=== PATIENT | female | born 1965 | race African-American/Black ===

== ENCOUNTER 2019-02-24 19:24 | Emergency (ER) | payer OTHER ==
[~2019-02-24] VITALS: Ht 154.9 cm; Wt 121.6 kg
[2019-02-24] MEDS ORDERED: cloNIDine HCL 0.1 MG TAB ONE (19:43)
[2019-02-24] MEDS ORDERED: cloNIDine HCL 0.1 MG TAB PO ONE (19:45)
[2019-02-24 20:56] LABS: Basophils # (auto) 0.1 uL; Eosinophils # (auto) 0.1 uL
[2019-02-24 20:58] LABS: Basophils % (auto) 0.9 % (0.0-2.0); Eosinophils % (auto) 0.9 % (0.0-7.0); Hematocrit 38.1 % (36.0-46.0); Hemoglobin 12.1 g/dL (12.2-16.2); Lymphocytes # (auto) 1.8 uL; Lymphocytes % (auto) 22.7 % (10.0-50.0); Mean Corpuscular Hemoglobin 22.6 pg (28.0-32.0); Mean Corpuscular Hgb Conc. 31.8 g/dL (32.0-36.0); Mean Corpuscular Volume 70.9 fL (80.0-100.0); Monocytes # (auto) 0.6 uL; Monocytes % (auto) 7.2 % (0.0-12.0); Neutrophils # (auto) 5.5 uL; Neutrophils % (auto) 68.3 % (37.0-80.0); Platelet Count (auto) 260 10^3/uL (140-450); Red Blood Cells 5.37 10^6/uL (4.0-5.20); Red Cell Distribution Width 16.7 % (11.8-14.3)
[2019-02-24 21:17] LABS: Albumin 3.6 g/dL (3.4-5.0); Anion Gap 6 (5-15); Blood Urea Nitrogen 12 mg/dL (7-18); Calcium 8.8 mg/dL (8.5-10.1); Carbon Dioxide 30 mmol/L (21-32); Chloride 106 mmol/L (98-107); Glucose 87 mg/dL (74-106); Potassium 4.1 mmol/L (3.5-5.1); Sodium 142 mmol/L (136-145)
[2019-02-24 21:23] LABS: Alanine Aminotransferase 28 U/L (13-56); Alkaline Phosphatase 106 U/L (45-117); Aspartate Aminotransferase 17 U/L (15-37); BUN/Creatinine Ratio 11.3; Bilirubin, Total 0.2 mg/dL (0.2-1.0); GFR African American 70 mL/min; GFR Non-African American 58 mL/min; Total Protein 7.4 g/dL (6.4-8.2)
[2019-02-25] MEDS ORDERED: KETOROLAC TROMETH 60MG/2ML VIAL IM ONE (01:00)
[2019-02-25 01:44] LABS: INR 0.92 (0.9-1.15); Partial Thromboplastin Time 26.3 sec (23.64-32.05)
[2019-02-25 03:30] VITALS: BP 136/82
== END 2019-02-25 04:25 | disposition home or self-care (01) ==
LOC: ER 19:24
DX: M54.31 Sciatica, right side (principal); M54.32 Sciatica, left side; E11.65 Type 2 diabetes mellitus with hyperglycemia; I10 Essential (primary) hypertension; R06.00 Dyspnea, unspecified
CPT/HCPCS: 36415; 71045; 80053; 82962; 83735; 83880; 84484; 85025; 85610; 85730; 93005; 96372; 99284; J1885

== ENCOUNTER 2020-07-15 10:39 | Emergency (ER) | payer MEDICAID ==
[~2020-07-15] VITALS: Ht 157.5 cm; Wt 116.6 kg
[2020-07-15] MEDS ORDERED: ASPirin 81 mg TAB PO ONE (11:15)
[2020-07-15 11:19] LABS: Basophils # (auto) 0 10 ^3/uL (0-0.2); Eosinophils # (auto) 0.1 10 ^3/uL (0-0.8); Hemoglobin 10.9 g/dL (12.2-16.2); Lymphocytes # (auto) 1.5 10 ^3/uL (0.4-5.4); Neutrophils # (auto) 5.2 10 ^3/uL (1.6-8.6)
[2020-07-15 11:20] LABS: Basophils % (auto) 0.6 % (0.0-2.0); Eosinophils % (auto) 1.1 % (0.0-7.0); Hematocrit 34.7 % (36.0-46.0); Mean Corpuscular Hemoglobin 22.9 pg (28.0-32.0); Mean Corpuscular Hgb Conc. 31.4 g/dL (32.0-36.0); Mean Corpuscular Volume 72.8 fL (80.0-100.0); Monocytes # (auto) 0.5 10 ^3/uL (0-1.3); Monocytes % (auto) 6.2 % (0.0-12.0); Neutrophils % (auto) 72.1 % (37.0-80.0); Nucleated Red Blood Cells % 0.1 %; Platelet Count (auto) 254 10^3/uL (140-450); Red Blood Cells 4.76 10^6/uL (4.0-5.20); Red Cell Distribution Width 15.7 % (11.8-14.3); White Blood Cell 7.3 10^3/uL (4.4-10.8)
[2020-07-15 11:33] LABS: INR 0.93 (0.9-1.15); Partial Thromboplastin Time 26.3 sec (23.0-31.2)
[2020-07-15 11:37] LABS: Alanine Aminotransferase 34 U/L (13-56); Albumin 3.5 g/dL (3.4-5.0); Anion Gap 5 (5-15); Blood Urea Nitrogen 13 mg/dL (7-18); Calcium 8.4 mg/dL (8.5-10.1); Carbon Dioxide 28 mmol/L (21-32); Chloride 108 mmol/L (98-107); Glucose 104 mg/dL (74-106); Magnesium 2.6 mg/dL (1.6-2.6); Potassium 3.9 mmol/L (3.5-5.1); Sodium 141 mmol/L (136-145)
[2020-07-15 11:42] LABS: Alkaline Phosphatase 101 U/L (45-117); Aspartate Aminotransferase 24 U/L (15-37); BUN/Creatinine Ratio 13.8; Bilirubin, Total 0.2 mg/dL (0.2-1.0); GFR African American 80 mL/min; GFR Non-African American 66 mL/min; Total Protein 6.8 g/dL (6.4-8.2)
[2020-07-15] MEDS ORDERED: cloNIDine HCL 0.1 MG TAB PO ONE (11:45)
[2020-07-15 12:42] VITALS: BP 167/97
== END 2020-07-15 15:17 | disposition home or self-care (01) ==
LOC: ER 10:39 → EDBD 10:39 → ER 15:17
DX: R07.89 Other chest pain (principal); I10 Essential (primary) hypertension; E11.9 Type 2 diabetes mellitus without complications
CPT/HCPCS: 36415; 71045; 80053; 83735; 83880; 84484; 85025; 85610; 85730; 93005

== ENCOUNTER 2024-03-04 10:26 | Inpatient (IN) | payer MEDICAID ==
[~2024-03-04] VITALS: Ht 154.9 cm; Wt 108.7 kg
[2024-03-04 11:05] LABS: Basophils # (auto) 0 10 ^3/uL (0-0.2); Basophils % (auto) 0.2 % (0.0-2.0); Eosinophils # (auto) 0.1 10 ^3/uL (0-0.8); Eosinophils % (auto) 0.9 % (0.0-7.0); Hematocrit 40.2 % (36.0-46.0); Hemoglobin 12.5 g/dL (12.2-16.2); Lymphocytes # (auto) 1.2 10 ^3/uL (0.4-5.4); Mean Corpuscular Hemoglobin 22.6 pg (28.0-32.0); Mean Corpuscular Volume 72.8 fL (80.0-100.0); Monocytes # (auto) 0.6 10 ^3/uL (0-1.3); Monocytes % (auto) 7.3 % (0.0-12.0); Neutrophils # (auto) 6.7 10 ^3/uL (1.6-8.6); Neutrophils % (auto) 77.6 % (37.0-80.0); Nucleated Red Blood Cells % 0.1 %; Red Blood Cells 5.52 10^6/uL (4.0-5.20); White Blood Cell 8.6 10^3/uL (4.4-10.8)
[2024-03-04] MEDS: FUROSEMIDE 100 MG/10ML VIAL IV ONE (11:05)
[2024-03-04 11:06] VITALS: PULSE 95; RESP 9; O2SAT 100
[2024-03-04 11:27] LABS: Alanine Aminotransferase 36 U/L (7-40); Albumin 3.9 g/dL (3.2-4.8); Alkaline Phosphatase 79 U/L (46-116); Anion Gap 2 (5-15); Aspartate Aminotransferase 30 U/L (13-40); BUN/Creatinine Ratio 22.1 (10.0-20.0); Bilirubin, Total 0.4 mg/dL (0.2-1.0); Blood Urea Nitrogen 21 mg/dL (9-23); Calcium 9.4 mg/dL (8.5-10.1); Carbon Dioxide 33 mmol/L (20-30); Chloride 106 mmol/L (98-107); Glucose 86 mg/dL (74-106); Potassium 4.5 mmol/L (3.5-5.1); Sodium 141 mmol/L (136-145); Total Protein 5.7 g/dL (5.7-8.2)
[2024-03-04] MEDS: AMIODARONE BOLUS KIT 100 ML IV ONE (12:06)
[2024-03-04] MEDS: ASPirin 325 MG TAB PO ONE (12:06)
[2024-03-04] MEDS: methylPREDNISolone SOD SUCC 125 MG/2 ML VL IV ONE (12:06)
[2024-03-04] MEDS: NITROGLYCERIN 0.4 MG SL TAB SL ONE (13:13)
[2024-03-04 14:38] LABS: Base Excess 3.1 mmol/L (-2.0-2.0)
[2024-03-04] MEDS ORDERED: CARVEDILOL 12.5 MG TAB PO ONE (15:45)
[2024-03-04] MEDS ORDERED: ACETAMINOPHEN 325 MG TAB PO PRN (15:45)
[2024-03-04] MEDS ORDERED: NITROGLYCERIN 0.4 MG SL TAB SL PRN (15:45)
[2024-03-04] MEDS ORDERED: ONDANSETRON HCL 4 MG/2 ML VIAL IV PRN ×2 (15:45→16:00)
[2024-03-04] MEDS ORDERED: DOCUSATE SOD 100 MG CAP PO PRN ×2 (15:45→16:00)
[2024-03-04] MEDS ORDERED: HYDROcodone-ACET 5/325MG TAB PO PRN ×2 (15:45→16:00)
[2024-03-04] MEDS ORDERED: MORPHINE SULFATE INJ 2 MG/ml SYRG IV PRN ×4 (15:45→16:00)
[2024-03-04] MEDS ORDERED: DEXTROSE (50%) 50ML SYRG IV PRN ×2 (15:45→16:00)
[2024-03-04 16:19] VITALS: BP 162/102; PULSE 72; RESP 15; TEMP 98.7; O2SAT 99
[2024-03-04] MEDS: CARVEDILOL 12.5 MG TAB PO ONE (16:36)
[2024-03-04] MEDS: CARVEDILOL 12.5 MG TAB ONE (16:43)
[2024-03-04 16:44] VITALS: O2SAT 93
[2024-03-04] MEDS: InsuLIN REG 1unit/0.01ml Soln (100units/ml) SC SCH (17:00)
[2024-03-04] MEDS ORDERED: InsuLIN REG 1unit/0.01ml Soln (100units/ml) SC SCH ×2 (17:00)
[2024-03-04] MEDS ORDERED: ACCU-CHEK COMFORT CURVE STRIP VI SCH (17:00)
[2024-03-04] MEDS: ACCU-CHEK COMFORT CURVE STRIP VI SCH (17:22)
[2024-03-04] MEDS ORDERED: LEVALBUTEROL HCL 1.25 MG/3 ML NEB NEB SCH (18:00)
[2024-03-04] MEDS ORDERED: IPRATROPIUM BROM 0.5 MG/2.5ML INH SOL NEB SCH (18:00)
[2024-03-04] MEDS ORDERED: FUROSEMIDE 40 MG/4 ML VIAL IV SCH ×3 (18:00→18:15)
[2024-03-04] MEDS: FUROSEMIDE 40 MG/4 ML VIAL IV SCH (18:13)
[2024-03-04 18:20] VITALS: PULSE 75; RESP 22; O2SAT 96
[2024-03-04] MEDS: LEVALBUTEROL HCL 1.25 MG/3 ML NEB NEB SCH (18:20)
[2024-03-04] MEDS: IPRATROPIUM BROM 0.5 MG/2.5ML INH SOL NEB SCH (18:20)
[2024-03-04 18:28] VITALS: PULSE 75; RESP 20; O2SAT 92
[2024-03-04] MEDS ORDERED: hydrALAZINE HCL 20 MG/ML VL IV PRN (19:30)
[2024-03-04] MEDS: cloNIDine HCL 0.1 MG TAB PO ONE (19:39)
[2024-03-04 20:00] VITALS: PULSE 82; RESP 17; O2SAT 97
[2024-03-04] MEDS ORDERED: LOSA-534 PO (23:18)
[2024-03-04 23:19] LABS: Urine Bacteria FEW /hpf (None Seen); Urine Blood Negative /uL (Negative); Urine Clarity Clear (Clear); Urine Color Colorless (Yellow); Urine Hyaline Cast FEW /lpf (0 - 2); Urine Protein, UAD Negative (Negative); Urine Specific Gravity 1.007 (1.001-1.035); Urine Urobilinogen Normal (Negative); Urine WBC 4 /hpf (0 - 5)
[2024-03-04] MEDS ORDERED: SPIR25TA8 PO (23:20)
[2024-03-04] MEDS ORDERED: CARV25TA55 PO (23:20)
[2024-03-05] VITALS (17 sets, daily range): BP systolic 105–138; BP diastolic 69–93; PULSE 59–80; RESP 14–20; TEMP 97.5–98.3; O2SAT 95–100
[2024-03-05] MEDS ORDERED: ALBU108A5 INH (01:39)
[2024-03-05] MEDS ORDERED: FURO1TAB31 PO (01:39)
[2024-03-05] MEDS ORDERED: METF-370 PO (01:39)
[2024-03-05] MEDS ORDERED: ATOR10TA PO (01:39)
[2024-03-05] MEDS: PANTOPRAZOLE 40 MG TAB PO SCH (06:10)
[2024-03-05 06:28] LABS: Alanine Aminotransferase 31 U/L (7-40); Albumin 3.5 g/dL (3.2-4.8); Alkaline Phosphatase 65 U/L (46-116); Anion Gap 2 (5-15); Aspartate Aminotransferase 22 U/L (13-40); BUN/Creatinine Ratio 16.2 (10.0-20.0); Blood Urea Nitrogen 16 mg/dL (9-23); Calcium 9.1 mg/dL (8.5-10.1); Carbon Dioxide 36 mmol/L (20-30); Chloride 102 mmol/L (98-107); Glucose 82 mg/dL (74-106); LDL Cholesterol 57 mg/dL (< 100); Potassium 4.2 mmol/L (3.5-5.1); Sodium 140 mmol/L (136-145); Triglycerides 59 mg/dL (< 150)
[2024-03-05 06:29] LABS: Bilirubin, Total 0.3 mg/dL (0.2-1.0); Cholesterol 124 mg/dL (< 200); HDL Cholesterol 56 mg/dL (40-59); Total Protein 5.4 g/dL (5.7-8.2)
[2024-03-05 07:34] LABS: Basophils # (auto) 0 10 ^3/uL (0-0.2); Basophils % (auto) 0.7 % (0.0-2.0); Eosinophils # (auto) 0 10 ^3/uL (0-0.8); Eosinophils % (auto) 0.2 % (0.0-7.0); Hemoglobin 11.7 g/dL (12.2-16.2); Lymphocytes # (auto) 0.7 10 ^3/uL (0.4-5.4); Lymphocytes % (auto) 10.3 % (10.0-50.0); Mean Corpuscular Hemoglobin 22.4 pg (28.0-32.0); Mean Corpuscular Hgb Conc. 30.7 g/dL (32.0-36.0); Monocytes # (auto) 0.6 10 ^3/uL (0-1.3); Monocytes % (auto) 9.8 % (0.0-12.0); Neutrophils # (auto) 5.2 10 ^3/uL (1.6-8.6); Nucleated Red Blood Cells % 0.2 %; Red Blood Cells 5.21 10^6/uL (4.0-5.20); Red Cell Distribution Width 16.1 % (11.8-14.3); White Blood Cell 6.6 10^3/uL (4.4-10.8)
[2024-03-05] MEDS: ASPirin-EC 81 mg tab PO SCH (09:18)
[2024-03-05] MEDS: CARVEDILOL 12.5 MG TAB PO SCH (09:18)
[2024-03-05] MEDS: LOSARTAN POTASSIUM 50 MG TAB PO SCH (09:18)
[2024-03-05] MEDS: ENOXAPARIN SOD 40 MG/0.4 ML SYRINGE SC SCH (09:19)
[2024-03-05] MEDS ORDERED: ENOXAPARIN SOD 40 MG/0.4 ML SYRINGE SC SCH (10:00)
[2024-03-05] MEDS ORDERED: ASPirin-EC 81 mg tab PO SCH (10:00)
[2024-03-05 12:24] LABS: Hypochromia Moderate; Platelet Estimate Adequate
[2024-03-05] MEDS: MAGNESIUM OXIDE 400 MG TAB PO ONE (14:46)
[2024-03-05] MEDS: ACETAMINOPHEN 325 MG TAB PO PRN (14:49)
[2024-03-05] MEDS ORDERED: FURO20TA3 PO (15:48)
[2024-03-05] MEDS ORDERED: SITA50TA PO (15:50)
[2024-03-05] MEDS ORDERED: ERGO1CAP12 PO (15:50)
[2024-03-05] MEDS ORDERED: LORA-622 PO (15:50)
[2024-03-05] MEDS ORDERED: NICO7DIS19 TD (15:50)
[2024-03-05] MEDS: cefTRIAXone 1GM/50ML D5W 50 ML IV SCH (17:33)
[2024-03-05 19:25] LABS: Free T3 2.22 pg/mL (2.3-4.2); Free T4 (Free Thyroxine) 1.19 ng/dL (0.89-1.76)
[2024-03-05] MEDS: NITROGLYCERIN 0.4 MG SL TAB SL PRN (21:59)
[2024-03-05] MEDS: ATORVASTATIN 20 MG TAB PO SCH (22:24)
[2024-03-05] MEDS: SACUBITRIL-VALSARTAN 24mg/26mg TAB PO SCH (22:24)
[2024-03-06] VITALS (20 sets, daily range): BP systolic 96–136; BP diastolic 56–91; PULSE 63–95; RESP 16–20; TEMP 96.8–98; O2SAT 95–100
[2024-03-06 06:02] LABS: Basophils # (auto) 0 10 ^3/uL (0-0.2); Basophils % (auto) 0.4 % (0.0-2.0); Mean Corpuscular Hemoglobin 22.8 pg (28.0-32.0); Monocytes # (auto) 0.4 10 ^3/uL (0-1.3); Neutrophils # (auto) 4.7 10 ^3/uL (1.6-8.6); White Blood Cell 6.3 10^3/uL (4.4-10.8)
[2024-03-06 06:06] LABS: Eosinophils # (auto) 0 10 ^3/uL (0-0.8); Eosinophils % (auto) 0.7 % (0.0-7.0); Hematocrit 38.5 % (36.0-46.0); Lymphocytes % (auto) 16.6 % (10.0-50.0); Mean Corpuscular Hgb Conc. 31.3 g/dL (32.0-36.0); Monocytes % (auto) 6.8 % (0.0-12.0); Neutrophils % (auto) 75.5 % (37.0-80.0); Red Blood Cells 5.27 10^6/uL (4.0-5.20); Red Cell Distribution Width 16.2 % (11.8-14.3)
[2024-03-06 07:14] LABS: Chloride 101 mmol/L (98-107); Sodium 141 mmol/L (136-145)
[2024-03-06 07:15] LABS: Calcium 8.7 mg/dL (8.5-10.1)
[2024-03-06 07:20] LABS: BUN/Creatinine Ratio 19.5 (10.0-20.0); Blood Urea Nitrogen 22 mg/dL (9-23); Glucose 100 mg/dL (74-106)
[2024-03-06 07:27] LABS: Anion Gap -0.00001 (5-15)
[2024-03-06 07:33] LABS: Carbon Dioxide > 40 mmol/L (20-30)
[2024-03-06] MEDS: SPIRONOLACTONE 25 MG TAB PO SCH (08:49)
[2024-03-06] MEDS ORDERED: SACU1TAB PO (13:40)
[2024-03-06] MEDS ORDERED: FURO40TA4 PO (13:40)
[2024-03-07] VITALS (10 sets, daily range): BP systolic 112–161; BP diastolic 74–97; PULSE 62–98; RESP 16–18; TEMP 96.5–98.4; O2SAT 93–100
== END 2024-03-07 16:00 | disposition home or self-care (01) | DRG 140 ==
LOC: ER 10:26 → EDBD 10:26 → TELE 15:35 → ER 15:35 → TELE-WESTW 22:15
PROVIDERS: ADMIT Internal Medicine; ATTEND Emergency Medicine
PROC: 5A09357 Assistance with Respiratory Ventilation, Less than 24 Consecutive Hours, Continuous Positive Airway Pressure (ICD-10-PCS; principal; 2024-03-04)
PROC: 5A09357 Assistance with Respiratory Ventilation, Less than 24 Consecutive Hours, Continuous Positive Airway Pressure (ICD-10-PCS; 2024-03-06)
DX: J44.1 Chronic obstructive pulmonary disease with (acute) exacerbation (principal); J96.01 Acute respiratory failure with hypoxia; I21.A1 Myocardial infarction type 2; I50.43 Acute on chronic combined systolic (congestive) and diastolic (congestive) heart failure; I47.20 Ventricular tachycardia, unspecified; D56.0 Alpha thalassemia; I11.0 Hypertensive heart disease with heart failure; I50.9 Heart failure, unspecified; E66.9 Obesity, unspecified; E78.5 Hyperlipidemia, unspecified; I16.0 Hypertensive urgency; E11.9 Type 2 diabetes mellitus without complications; N39.0 Urinary tract infection, site not specified; F20.9 Schizophrenia, unspecified; K21.9 Gastro-esophageal reflux disease without esophagitis; I49.1 Atrial premature depolarization; Z79.84 Long term (current) use of oral hypoglycemic drugs; F32.9 Major depressive disorder, single episode, unspecified; I08.1 Rheumatic disorders of both mitral and tricuspid valves; I25.2 Old myocardial infarction; Z87.891 Personal history of nicotine dependence; Z68.42 Body mass index [BMI] 45.0-49.9, adult; Z82.49 Family history of ischemic heart disease and other diseases of the circulatory system
CPT/HCPCS: 36415; 36600; 71045; 71250; 80048; 80053; 80061; 81001; 82805; 82962; 83036; 83605; 83735; 83880; 84436; 84439; 84443; 84481; 84484; 85025; 93005; 93306; 94640; 94660; 96365; 96375; 99291; G0378; J1815

== ENCOUNTER 2024-06-01 20:57 | Inpatient (IN) | payer MEDICAID ==
[~2024-06-01] VITALS: Ht 162.6 cm; Wt 109.0 kg
[~2024-06-01 20:57] MED LIST: ALBU108A5 INH; ATOR10TA PO; CARV25TA55 PO; ERGO1CAP12 PO; FURO40TA4 PO; LORA-622 PO; METF-370 PO; NICO7DIS19 TD; SACU1TAB PO; SITA50TA PO; SPIR25TA8 PO
[2024-06-01 21:10] VITALS: PULSE 86; RESP 24; TEMP 99; O2SAT 100
[2024-06-01] MEDS: IPRATROPIUM BROM 0.5 MG/2.5ML INH SOL NEB ONE (21:24)
[2024-06-01] MEDS: IPRATROPIUM BROM 0.5 MG/2.5ML INH SOL ONE (21:24)
[2024-06-01] MEDS: ALBUTEROL SULF 2.5 MG/0.5ML(0.5%) NEB SOLN ONE (21:25)
[2024-06-01] MEDS: ALBUTEROL SULF 2.5 MG/0.5ML(0.5%) NEB SOLN NEB ONE (21:25)
[2024-06-01 23:12] LABS: Basophils # (auto) 0 10 ^3/uL (0-0.2); Basophils % (auto) 0.5 % (0.0-2.0); Eosinophils # (auto) 0.1 10 ^3/uL (0-0.8); Eosinophils % (auto) 1.5 % (0.0-7.0); Hematocrit 37.7 % (36.0-46.0); Lymphocytes # (auto) 1.5 10 ^3/uL (0.4-5.4); Lymphocytes % (auto) 18.4 % (10.0-50.0); Mean Corpuscular Hemoglobin 23.3 pg (28.0-32.0); Mean Corpuscular Hgb Conc. 31.9 g/dL (32.0-36.0); Mean Corpuscular Volume 73.1 fL (80.0-100.0); Monocytes # (auto) 0.6 10 ^3/uL (0-1.3); Monocytes % (auto) 7.1 % (0.0-12.0); Neutrophils # (auto) 5.8 10 ^3/uL (1.6-8.6); Neutrophils % (auto) 72.5 % (37.0-80.0); Nucleated Red Blood Cells % 0.1 %; Platelet Count (auto) 220 10^3/uL (140-450); Red Blood Cells 5.17 10^6/uL (4.0-5.20); Red Cell Distribution Width 16.7 % (11.8-14.3)
[2024-06-01 23:29] LABS: Alanine Aminotransferase 58 U/L (7-40); Albumin 3.8 g/dL (3.2-4.8); Alkaline Phosphatase 81 U/L (46-116); Anion Gap 2 (5-15); Aspartate Aminotransferase 35 U/L (13-40); BUN/Creatinine Ratio 13.1 (10.0-20.0); Blood Urea Nitrogen 14 mg/dL (9-23); Carbon Dioxide 34 mmol/L (20-30); Chloride 106 mmol/L (98-107); Glucose 118 mg/dL (74-106); Potassium 4.1 mmol/L (3.5-5.1); Sodium 142 mmol/L (136-145)
[2024-06-01 23:30] LABS: Bilirubin, Total 0.4 mg/dL (0.2-1.0); Total Protein 5.9 g/dL (5.7-8.2)
[2024-06-02] MEDS ORDERED: IPRATROPIUM BROM 0.5 MG/2.5ML INH SOL NEB PRN (04:00)
[2024-06-02] MEDS ORDERED: NITROGLYCERIN 0.4 MG SL TAB SL PRN (04:00)
[2024-06-02] MEDS ORDERED: DEXTROSE (50%) 50ML SYRG IV PRN (04:00)
[2024-06-02] MEDS ORDERED: ONDANSETRON HCL 4 MG/2 ML VIAL IV PRN (04:00)
[2024-06-02] MEDS ORDERED: ACETAMINOPHEN 325 MG TAB PO PRN (04:00)
[2024-06-02] MEDS ORDERED: MORPHINE SULFATE INJ 2 MG/ml SYRG IV PRN (04:00)
[2024-06-02] MEDS ORDERED: ALBUTEROL SULF 2.5 MG/0.5ML(0.5%) NEB SOLN NEB PRN (04:00)
[2024-06-02 04:01] VITALS: BP 175/105; PULSE 85; RESP 24
[2024-06-02 04:13] VITALS: BP 172/100; PULSE 90; RESP 18; O2SAT 98
[2024-06-02] MEDS ORDERED: FUROSEMIDE 20 MG/2 ML VIAL IV SCH (06:00)
[2024-06-02] MEDS ORDERED: InsuLIN REG 1unit/0.01ml Soln (100units/ml) SC SCH (07:00)
[2024-06-02] MEDS ORDERED: ACCU-CHEK COMFORT CURVE STRIP VI SCH (07:00)
[2024-06-02] MEDS ORDERED: ENOXAPARIN SOD 30 MG/0.3 ML SYRINGE SC SCH (10:00)
[2024-06-02] MEDS ORDERED: SACUBITRIL-VALSARTAN 24mg/26mg TAB PO SCH (10:00)
[2024-06-02] MEDS ORDERED: CARVEDILOL 12.5 MG TAB PO SCH (10:00)
[2024-06-02] MEDS ORDERED: ATORVASTATIN 20 MG TAB PO SCH (22:00)
== END 2024-06-02 06:01 | disposition left against medical advice (07) | DRG 194 ==
LOC: EDBD 20:57 → ER 20:57 → UNDOADMIN 06-02 03:54 → TELE 06-02 03:54 → UNDODISIN 06-02 05:45
PROVIDERS: ADMIT Nurse Practitioner; ATTEND Nurse Practitioner
DX: I11.0 Hypertensive heart disease with heart failure (principal); J96.20 Acute and chronic respiratory failure, unspecified whether with hypoxia or hypercapnia; A08.4 Viral intestinal infection, unspecified; J44.1 Chronic obstructive pulmonary disease with (acute) exacerbation; Z53.29 Procedure and treatment not carried out because of patient's decision for other reasons; E11.9 Type 2 diabetes mellitus without complications; Z91.199 Patient's noncompliance with other medical treatment and regimen due to unspecified reason; Z79.899 Other long term (current) drug therapy; Z79.4 Long term (current) use of insulin; I50.43 Acute on chronic combined systolic (congestive) and diastolic (congestive) heart failure
CPT/HCPCS: 36415; 71045; 74176; 80053; 83880; 85025; 85379; 93005; 94640; G0378